=== PATIENT | male | born 1985 | race Caucasian/White ===

== ENCOUNTER 2024-10-07 09:37 | Emergency (ER) | payer OTHER ==
[~2024-10-07] VITALS: Ht 175.3 cm; Wt 101.7 kg
[2024-10-07 09:43] VITALS: BP 145/93; PULSE 78; RESP 16; O2SAT 98
[2024-10-07] MEDS: TETanus/Pertussis (Acell)/Diphther VAC/PF (Tdap-Adult) 0.5ml syringe IMVAC ONE (10:21)
[2024-10-07] MEDS: LIDOcaine 1% W/epiNEPHrine 1:100,000 20ml vial IJ ONE (10:21)
[2024-10-07 11:04] VITALS: TEMP 98.2
== END 2024-10-07 11:06 | disposition home or self-care (01) ==
LOC: ER 09:38 → EDBD 09:38 → ER 11:06
DX: S61.011A Laceration without foreign body of right thumb without damage to nail, initial encounter (principal); W45.8XXA Other foreign body or object entering through skin, initial encounter; Y93.89 Activity, other specified; Y92.89 Other specified places as the place of occurrence of the external cause; Y99.8 Other external cause status
CPT/HCPCS: 12001; 90471; 90715; 99283; A6222; A6258; A6449